=== PATIENT | male | born 1930 | race Caucasian/White ===

== ENCOUNTER → 2016-05-20 | Outpatient (CLI) | payer MEDICARE ==
[~2016-05-20] MED LIST: ADVI200C5 PO; ALUM5LIQ PO; AMOX500T PO; ASPI1TAB69 PO; ASPI81TA82 PO; COLA50CA PO; COQ-150C PO; LISI-360 PO; LISI10TA3 PO; MUCI600T PO; NIAC250T3 PO; RANI150T PO; ROSU20 PO; TAMS5CAP PO; TOPR50TA PO
[2016-05-20 13:14] LABS: HEMATOCRIT 43.7 % (39.0-51.0); MEAN CELL VOLUME 92.3 FL (80.0-100.0); MEAN CORPUSCULAR HEMOGLOBIN 31.5 PG (27.0-34.0); MEAN CORPUSCULAR HGB CONC 34.1 % (32.0-36.0); PLATELET COUNT 197 TH/MM3 (150-450); RED BLOOD COUNT 4.73 MIL/MM3 (4.50-5.90); REVIEW FLAG FINAL; WHITE BLOOD COUNT 7.6 TH/MM3 (4.0-11.0)
--- NOTE | 2016-05-20 16:08 | EKG ---
Date Performed: 05/20/2016 Time Performed: 12:03:28 PTAGE: 86 years EKG: Sinus rhythm NORMAL ECG NO PREVIOUS TRACING DOCTOR: Jordan Grimaldo Interpretating Date/Time 05/20/2016 16:06:15
== END ==
LOC: CPRE 11:35
PROVIDERS: ATTEND Specialist
DX: Z01.810 Encounter for preprocedural cardiovascular examination (principal); Z01.812 Encounter for preprocedural laboratory examination; J34.2 Deviated nasal septum; J32.3 Chronic sphenoidal sinusitis
CPT/HCPCS: 36415; 85027; 93005

== ENCOUNTER → 2016-05-26 | Day surgery (SDC) | payer MEDICARE ==
--- NOTE | 2016-05-25 18:15 | MH ---
cc: NATHAN ALBARRAN DATE OF ADMISSION 05/26/2016 REASON FOR ADMISSION An 86-year-old gentleman with nasal obstruction and chronic sinusitis for nasal sinus surgery. PAST MEDICAL HISTORY Unremarkable. PAST SURGICAL HISTORY Unremarkable. REVIEW OF SYSTEMS Unremarkable. FAMILY HISTORY Unremarkable. SOCIAL HISTORY Unremarkable. PHYSICAL EXAMINATION GENERAL: A well-appearing patient in no acute distress is noted. HEENT: Exam reveals septal deviation, turbinate hypertrophy, mucopurulent secretions. LUNGS: Clear. HEART: Regular rate and rhythm. ABDOMEN: Soft and nontender. EXTREMITIES: Without clubbing, cyanosis or edema. NEUROLOGIC: Alert, oriented, nonfocal neurologic exam. IMPRESSION A patient with chronic sinusitis and nasal obstruction for nasal sinus surgery. The patient instructed in the method of surgery including anesthetic complications such as cardiac difficulty, pulmonary difficulty, stroke, or even . Surgical complications bleeding, infection, risk of transfusion, injury to orbit including blindness and diplopia, injury to brain including CSF leak, meningitis, brain abscess or even . The patient appeared to agree accept and understand above-mentioned risks and benefits. In addition no guarantees or warranties regarding outcome were given. We will therefore proceed with surgery. MD JATINDER Burleson/CHANA /5:26 PM /6:03 PM
[~2016-05-26] VITALS: Ht 167.6 cm; Wt 83.9 kg
[~2016-05-26] MED LIST changes: +ACETAMINOPHEN 1000 MG/100 ML VIAL IV ONE; +ACETAMINOPHEN/HYDROcodone 325 MG/7.5 MG TAB PO PRN; -ALUM5LIQ PO; -AMOX500T PO; -ASPI81TA82 PO; -COLA50CA PO; +DO NOT ADM ANY ANTICOAGULANT DRUGS XX PRN; +EPINEPHrine HCL (1:1000) 30 MG/30 ML VIAL ONE; +FAMOTIDINE 20 MG/2 ML VIAL ONE; +LIDOCAINE 1%/EPINEPHrine 1:100,000 SOLN 30 ML VIAL ONE; -LISI-360 PO; +MIDAZOLAM HCL 2 MG/2 ML VIAL ONE; +MORPHINE SULFATE 4 MG/ML INJ IV PUSH PRN; -MUCI600T PO; +ONDANSETRON HCL 4 MG/2 ML VIAL IV PUSH ONE; +ONDANSETRON HCL 4 MG/2 ML VIAL IV PUSH PRN; +PHENYLEPH/NS 1000 MCG/10 ML SYR IV ONE; +PROPOFOL 200 MG/20 ML AMP IV ONE; +ePHEDrine/NS 25 MG/5 ML SYR IV ONE; +fentaNYL CITRATE 250 MCG/5 ML AMP ONE
[2016-05-26 07:30] VITALS: BP 131/72; PULSE 75; RESP 18; TEMP 97.9; O2SAT 99
[2016-05-26 12:16] VITALS: BP 115/68; PULSE 63; RESP 20; TEMP 97.4; O2SAT 99
--- NOTE | 2016-05-29 06:34 | MP ---
cc: NATHAN ALBARRAN DATE OF SURGERY: 05/26/2016 PREOPERATIVE DIAGNOSIS Chronic nasal obstruction and chronic sinusitis. POSTOPERATIVE DIAGNOSIS Chronic nasal obstruction and chronic sinusitis. PROCEDURE 1. Open septal reconstruction. 2. Bilateral endoscopic frontal sinusotomy. 3. Bilateral endoscopic maxillary antrostomy with removal of tissue. 4. Bilateral endoscopic anterior posterior ethmoidectomy. 5. Bilateral inferior turbinate submucous resection. ANESTHESIA General. ESTIMATED BLOOD LOSS Minimal. COMPLICATIONS No complications. OPERATING SURGEON Dr. Albarran OPERATION Prepped, draped usual fashion. 1% Xylocaine, 1:100,000 epinephrine injected into nasal septum, inferior turbinate, middle meatus bilaterally. 1:1000 adrenaline-soaked pledgets were placed and then removed. Once this was achieved, under endoscopic visualization the microdebrider was used to remove the uncinate process on the left side, the natural antrostomy identified and enlarged and a significant amount of mucopurulent suctioned from it along with polypoid tissue. Anterior posterior ethmoidectomy performed with microdebrider as well as frontal sinus dissection. Significant purulence returned after opening the frontal sinus and the ethmoid. A Telfa splint was placed under endoscopic visualization in the left middle meatus. Similar fashion right side significant anterior posterior ethmoidectomy performed with microdebrider, natural antrostomy enlarged and polypoid tissue removed from it endoscopically with the microdebrider and an uncinectomy performed up to the level of the frontal sinus recess where dissection performed with the microdebrider and removal of tissue all under endoscopic visualization. Telfa splint placed. Once this was achieved a mucoperichondrial incision made on the right side of the nose. Mucoperichondrial flap elevated. Significant amount of bone and cartilage removed from this incision to improve the nasal airway and reduce the nasal fracture. Once this was achieved the mucoperichondrial flap re-approximated using the Coblator probe multiple insertions in the left and the right inferior turbinates. Significant submucosal resection of the turbinate was performed. No active bleeding was noted. Patient tolerated procedure well. MD JATINDER Burleson/KANDICE /11:59 AM /6:23 AM
== END | disposition home or self-care (01) ==
LOC: HSDC 06:49
PROVIDERS: ATTEND Specialist
DX: J32.9 Chronic sinusitis, unspecified (principal); J34.3 Hypertrophy of nasal turbinates; J34.2 Deviated nasal septum; B96.89 Other specified bacterial agents as the cause of diseases classified elsewhere
CPT/HCPCS: 00160; 30140; 30520; 31254; 31267; 31276; 86403; 87015; 87070; 87102; 87116; 87185; 87205; 87206; J0131; J0171; J2250; J2370; J2405; J3010

== ENCOUNTER 2016-05-28 13:25 | Emergency (ER) | payer MEDICARE ==
[~2016-05-28] VITALS: Ht 167.6 cm; Wt 84.1 kg
[~2016-05-28 13:25] MED LIST changes: -ACETAMINOPHEN 1000 MG/100 ML VIAL IV ONE; -ACETAMINOPHEN/HYDROcodone 325 MG/7.5 MG TAB PO PRN; -DO NOT ADM ANY ANTICOAGULANT DRUGS XX PRN; -EPINEPHrine HCL (1:1000) 30 MG/30 ML VIAL ONE; -FAMOTIDINE 20 MG/2 ML VIAL ONE; -LIDOCAINE 1%/EPINEPHrine 1:100,000 SOLN 30 ML VIAL ONE; -MIDAZOLAM HCL 2 MG/2 ML VIAL ONE; -MORPHINE SULFATE 4 MG/ML INJ IV PUSH PRN; -ONDANSETRON HCL 4 MG/2 ML VIAL IV PUSH ONE; -ONDANSETRON HCL 4 MG/2 ML VIAL IV PUSH PRN; -PHENYLEPH/NS 1000 MCG/10 ML SYR IV ONE; -PROPOFOL 200 MG/20 ML AMP IV ONE; -TAMS5CAP PO; -ePHEDrine/NS 25 MG/5 ML SYR IV ONE; -fentaNYL CITRATE 250 MCG/5 ML AMP ONE
[2016-05-28 13:38] VITALS: BP 126/74; PULSE 85; RESP 16; TEMP 97.4; O2SAT 97
[2016-05-28] MEDS ORDERED: SODIUM CHLOR 0.9% 1000 ML INJ 1,000 ML IV SCH (13:59)
[2016-05-28] MEDS ORDERED: SODIUM CHLORIDE 0.9% FLUSH 5 ML FLUSH IVF PRN (14:00)
--- NOTE | 2016-05-28 14:12 | PD ---
HPI Chief Complaint: Complaint Time Seen by Provider: 13:59 Travel History International Travel<30 days: No Contact w/Intl Traveler<30days: No Traveled to known affect area: No History of Present Illness HPI Patient presents with complaints of urinary retention and constipation. Reports sinus surgery on with anesthesia, denies Thomas placement. Reports one very small bowel movement since. Reports urinating at 2:00 this morning. Denies any previous prostate issues. Denies any previous abdominal surgeries. He is not taking pain medication. Denies nausea vomiting diarrhea or fever. Compliant with oral antibiotics. PFSH Past Medical History Hx Anticoagulant Therapy: Yes (asa 81mg) Cancer: No Cardiovascular Problems: Yes (htn on meds 4 vessel bypass 2004) High Cholesterol: Yes Coronary Artery Disease: Yes Diabetes: No Diminished Hearing: Yes Endocrine: No Gastrointestinal Disorders: No Genitourinary: No Hepatitis: No Hiatal Hernia: No Hypertension: Yes Immune Disorder: No Medical other: No Musculoskeletal: Yes (arthritis in hands ) Neurologic: No Psychiatric: No Reproductive: No Respiratory: No Thyroid Disease: No Tetanus Vaccination: Unknown Past Surgical History AICD: No Body Medical Devices: sternal wires Cardiac Surgery: Yes (bypass 2004 4 vessels) Coronary Artery Bypass Graft: Yes (2003) Eye Surgery: Yes (catract bilateral) Joint Replacement: No Pacemaker: No Social History Alcohol Use: No Tobacco Use: No Substance Use: No Allergies-Medications (Allergen,Severity, Reaction): Coded Allergies: No Known Allergies (Unverified , 05/28/16) Reported Meds & Prescriptions Reported Meds & Active Scripts Active Flomax (Tamsulosin HCl) 0.4 Mg Cap 0.4 Mg PO HS Reported Coq-10 (Coenzyme Q10 (Ubidecarenone)) 150 Mg Cap 300 Mg PO DAILY Niacin 250 Mg Tab 400 Mg PO DAILY Lisinopril 10 Mg Tab 10 Mg PO DAILY Toprol XL (Metoprolol Succinate) 50 Mg Tab 50 Mg PO DAILY Ranitidine (Ranitidine HCl) 150 Mg Tab 150 Mg PO DAILY Crestor (Rosuvastatin Calcium) 20 Mg Tab 20 Mg PO DAILY Review of Systems General / Constitutional: No: Fever Eyes: No: Visual changes HENT: No: Headaches Cardiovascular: No: Chest Pain or Discomfort Respiratory: No: Shortness of Breath Gastrointestinal: Positive: Constipation, No: Abdominal Pain Genitourinary: Positive: Decreased Urinary Output, No: Dysuria Musculoskeletal: No: Pain Skin: No Rash Neurologic: No: Weakness Psychiatric: No: Depression Endocrine: No: Polydipsia Hematologic/Lymphatic: No: Easy Bruising Physical Exam Narrative GENERAL: Well-nourished, well-developed patient. SKIN: Warm and dry. HEAD: Normocephalic. EYES: No scleral icterus. No injection or drainage. NECK: Supple, trachea midline. No JVD or lymphadenopathy. CARDIOVASCULAR: Regular rate and rhythm without murmurs, gallops, or rubs. RESPIRATORY: Breath sounds equal bilaterally. No accessory muscle use. GASTROINTESTINAL: Abdomen soft, diffusely tender in the pubic region and left lower quadrant, nondistended. MUSCULOSKELETAL: No cyanosis, or edema. BACK: Nontender without obvious deformity. No CVA tenderness. Data Data Last Documented VS Vital Signs Date Time Temp Pulse Resp B/P Pulse Ox O2 Delivery O2 Flow Rate FiO2 05/28/16 14:40 77 16 122/66 99 Room Air 05/28/16 13:38 97.4 Orders Urinalysis - C+S If Indicated (05/28/16 13:59) Iv Access Insert/Monitor (05/28/16 13:59) Ecg Monitoring (05/28/16 13:59) Oximetry (05/28/16 13:59) NPO (05/28/16 13:59) Sodium Chlor 0.9% 1000 Ml Inj (Ns 1000 M (05/28/16 13:59) Sodium Chloride 0.9% Flush (Ns Flush) (05/28/16 14:00) Abdomen, Upright Only (05/28/16 13:59) Urinary Catheter Management COLLIN.Q8H (05/28/16 13:59) Labs Laboratory Tests Test 05/28/16 14:25 Urine Collection Type CATH Urine Color YELLOW Urine Turbidity SLIGHT Urine pH 6.0 Urine Specific [place] 1.012 Urine Protein NEG mg/dL Urine Glucose (UA) NEG mg/dL Urine Ketones NEG mg/dL Urine Occult Blood NEG Urine Nitrite NEG Urine Bilirubin NEG Urine Leukocyte Esterase NEG Urine RBC 0-3 /hpf Urine Transitional Epithelial 0-5 /hpf Cells Urine Amorphous Sediment FEW Microscopic Urinalysis Comment CATH-CULT NOT IND Urine Collection Time 1425 MDM Medical Decision Making Medical Screen Exam Complete: Yes Emergency Medical Condition: Yes Differential Diagnosis Urinary retention, BPH, constipation, small bowel obstruction, ileus Narrative Course Assessment and plan discussed with patient and at bedside. Thomas catheter placed with over 1300 cc of urinary output. Patient much improved. Last 72 hours Impressions Abdomen X-Ray 05/28/16 2729 Signed Impressions: Service Date/Time: Monday, May 28, 2016 14:29 - CONCLUSION: Unremarkable upper abdomen. Henrique Rockwell MD Diagnosis Primary Impression: Urinary retention Additional Impression: Constipation Qualified Code: K59.03 - Drug-induced constipation Patient Instructions: General Instructions Additional Instructions: Constipation: Encouraged Colace 100 mg by mouth twice a day, encouraged increase fluids and fiber supplement, encouraged daily prune juice, discussed Dulcolax and magnesium citrate as well as fleets enema Urinary retention: Leave Thomas in place with leg bag placed, follow-up with PCP I feel this is likely secondary to anesthesia, PCP we'll assess need for urology , start Flomax Med/Other Pt SpecificInfo: Prescription(s) given Scripts Tamsulosin (Flomax)0.4 Mg Cap0.4 Mg PO HS #30 CAP Ref 0 Prov:Tio Pearson MD 05/28/16 Disposition: 01 DISCHARGE HOME Condition: Good Tio Pearson MD May 28, 2016 14:12
[2016-05-28 14:15] VITALS: RESP 16; O2SAT 99
[2016-05-28 14:40] VITALS: BP 122/66; PULSE 77; RESP 16; O2SAT 99
--- NOTE | 2016-05-28 14:44 | RADHPO ---
EXAM DATE/TIME: 05/28/2016 14:29 [facility] COMPARISON: No previous studies available for comparison. INDICATIONS : Abdomen pain today MEDICAL HISTORY : None. SURGICAL HISTORY : None. ENCOUNTER: Initial ACUITY: 1 day PAIN SCORE: 7/10 LOCATION: Bilateral abdomen FINDINGS: A single erect view of the abdomen demonstrates the lower lungs to be clear. No evidence of free int raperitoneal gas. The visualized bowel loops are unremarkable. CONCLUSION: Unremarkable upper abdomen. Henrique Rockwell MD on May 28, 2016 at 14:42 Board Certified Radiologist. This report was verified electronically.
[2016-05-28 14:50] LABS: BLOOD, URINE NEG (NEG); GLUCOSE,URINE NEG (NEG); KETONE, URINE NEG (NEG); METHOD OF COLLECTION CATH; NITRITE,URINE NEG (NEG)
[2016-05-28 14:51] LABS: URINE COLOR YELLOW (YELLW/STRAW)
[2016-05-28 14:54] LABS: COMMENT (UR) CATH-CULT NOT IND; COMMENT2 (UR) MUCOUS PRESENT; CULTURE IF INDICATED CATH CULTURE NOT IND; RBC, URINE 0-3 /hpf (0-3)
[2016-05-28 14:55] LABS: TRANSITIONAL EPI CELLS, URINE 0-5 /hpf
[2016-05-28] MEDS ORDERED: TAMS5CAP PO (15:28)
[2016-05-28 15:40] VITALS: BP 136/66; PULSE 78; RESP 16; O2SAT 98
== END 2016-05-28 16:00 | disposition home or self-care (01) ==
LOC: PHED 13:25
DX: R33.9 Retention of urine, unspecified (principal); K59.00 Constipation, unspecified; I10 Essential (primary) hypertension; E78.00 Pure hypercholesterolemia, unspecified; I25.10 Atherosclerotic heart disease of native coronary artery without angina pectoris; Z79.01 Long term (current) use of anticoagulants
CPT/HCPCS: 51702; 74000; 81001; 96360; 99283; J7030

== ENCOUNTER 2016-05-30 10:50 | Emergency (ER) | payer MEDICARE ==
[~2016-05-30] VITALS: Ht 167.6 cm; Wt 82.0 kg
[~2016-05-30 10:50] MED LIST changes: -ADVI200C5 PO; -ASPI1TAB69 PO; +TAMS5CAP PO
[2016-05-30 10:55] VITALS: BP 131/78; PULSE 77; RESP 18; TEMP 97.8; O2SAT 98
--- NOTE | 2016-05-30 11:43 | PD ---
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 Patient was seen and evaluated in the emergency department on Monday, at that time he had complaint of urinary retention and constipation. He had sinus surgery on 05/26/16 under anesthesia, it was felt that the retention was secondary to the anesthesia. Patient has had no previous problems with urinary retention/obstruction. He states his primary doctor will take the catheter out and he has no urologist. Denies any other complaints at this time, stating that he feels good. PFSH Past Medical History Hx Anticoagulant Therapy: No (ASA 81 mg daily ) Cancer: No Cardiovascular Problems: Yes (CABG) High Cholesterol: Yes Coronary Artery Disease: Yes Diabetes: No Diminished Hearing: Yes Endocrine: No Gastrointestinal Disorders: No Genitourinary: No Hepatitis: No Hiatal Hernia: No Hypertension: Yes Immune Disorder: No Musculoskeletal: Yes (arthritis in hands ) Neurologic: No Psychiatric: No Reproductive: No Respiratory: No Thyroid Disease: No Tetanus Vaccination: < 5 Years Influenza Vaccination: Yes Past Surgical History AICD: No Body Medical Devices: sternal wires Cardiac Surgery: Yes (bypass 2004 4 vessels) Coronary Artery Bypass Graft: Yes (2003) Eye Surgery: Yes (catract bilateral) Joint Replacement: No Pacemaker: No Other Surgery: Yes Social History Alcohol Use: No Tobacco Use: No Substance Use: No Allergies-Medications (Allergen,Severity, Reaction): Coded Allergies: No Known Allergies (Unverified , 05/30/16) Reported Meds & Prescriptions Reported Meds & Active Scripts Active Flomax (Tamsulosin HCl) 0.4 Mg Cap 0.4 Mg PO HS Reported Coq-10 (Coenzyme Q10 (Ubidecarenone)) 150 Mg Cap 300 Mg PO DAILY Niacin 250 Mg Tab 400 Mg PO DAILY Lisinopril 10 Mg Tab 10 Mg PO DAILY Toprol XL (Metoprolol Succinate) 50 Mg Tab 50 Mg PO DAILY Ranitidine (Ranitidine HCl) 150 Mg Tab 150 Mg PO DAILY Crestor (Rosuvastatin Calcium) 20 Mg Tab 20 Mg PO DAILY Review of Systems Except as stated in HPI: all other systems reviewed are Neg Physical Exam Narrative GENERAL: Well-nourished, well-developed patient. SKIN: Warm and dry. HEAD: Normocephalic. EYES: No scleral icterus. No injection or drainage. NECK: Supple, trachea midline. No JVD or lymphadenopathy. CARDIOVASCULAR: Regular rate and rhythm without murmurs, gallops, or rubs. RESPIRATORY: Breath sounds equal bilaterally. No accessory muscle use. GASTROINTESTINAL: Abdomen soft, non-tender, nondistended. MUSCULOSKELETAL: No cyanosis, or edema. BACK: Nontender without obvious deformity. No CVA tenderness. Data Data Last Documented VS Vital Signs Date Time Temp Pulse Resp B/P Pulse Ox O2 Delivery O2 Flow Rate FiO2 05/30/16 10:55 97.8 77 18 131/78 98 Orders Urinary Catheter - Remove (05/30/16 11:31) [facility] Medical Decision Making Medical Screen Exam Complete: Yes Emergency Medical Condition: Yes Interpretation(s) Vital Signs Date Time Temp Pulse Resp B/P Pulse Ox O2 Delivery O2 Flow Rate FiO2 05/30/16 10:55 97.8 77 18 131/78 98 Differential Diagnosis Urinary retention versus obstruction versus side effects of anesthesia versus urinary tract infection versus other Narrative Course He is a 6-year-old male who presented to emergency department to have his urinary catheter removed. Catheter was placed on 28 May after patient complaint of urinary retention likely secondary to anesthesia that he was under on May 26. Patient appears well, his vital signs are stable, urinary catheter was removed without difficulty. Patient was able to urinate without difficulty in the emergency department after Thomas catheter was removed. He was encouraged to follow-up with his primary doctor. He was encouraged to return to emergency department immediately for any new or worsening symptoms. Patient and verbalized understanding of these instructions. Patient is stable for discharge. Diagnosis Primary Impression: Encounter for removal of urinary catheter Referrals: Primary Care Physician Patient Instructions: General Instructions Additional Instructions: Follow-up with your primary doctor Return to emergency department immediately for any new or worsening symptoms or inability to urinate Continue home medications as previously prescribed Med/Other Pt SpecificInfo: No Change to Meds Disposition: 01 DISCHARGE HOME Condition: Stable Nel Galicia May 30, 2016 11:43
== END 2016-05-30 13:00 | disposition home or self-care (01) ==
LOC: PHEFT 10:50
DX: Z46.82 Encounter for fitting and adjustment of non-vascular catheter (principal); I10 Essential (primary) hypertension; E78.00 Pure hypercholesterolemia, unspecified; Z95.1 Presence of aortocoronary bypass graft
CPT/HCPCS: 99283

== ENCOUNTER → 2017-04-10 | Outpatient (CLI) | payer MEDICARE ==
[2017-04-10 09:31] LABS: HEMATOCRIT 42.1 % (39.0-51.0); MEAN CELL VOLUME 92.4 FL (80.0-100.0); MEAN CORPUSCULAR HEMOGLOBIN 32.7 PG (27.0-34.0); MEAN CORPUSCULAR HGB CONC 35.4 % (32.0-36.0); PLATELET COUNT 196 TH/MM3 (150-450); RED BLOOD COUNT 4.55 MIL/MM3 (4.50-5.90); RED CELL DISTRIBUTION WIDTH 12.5 % (11.6-17.2); REVIEW FLAG FINAL; WHITE BLOOD COUNT 6.9 TH/MM3 (4.0-11.0)
[2017-04-10 09:42] LABS: ANION GAP 6 MEQ/L (5-15); AST (GOT) 28 U/L (15-37); BICARBONATE 27.5 MEQ/L (21.0-32.0); BLOOD UREA NITROGEN 16 MG/DL (7-18); CHLORIDE 105 MEQ/L (98-107); GLOMERULAR FILTRATION RATE 62 ML/MIN (>89); POTASSIUM 4.1 MEQ/L (3.5-5.1); SODIUM (NA) 138 MEQ/L (136-145)
[2017-04-10 09:44] LABS: GLUCOSE,FASTING 108 MG/DL (74-99)
[2017-04-10 09:51] LABS: ALKALINE PHOSPHATASE 89 U/L (45-117); ALT (GPT) 30 U/L (12-78); HDL CHOLESTEROL 52.4 MG/DL (40.0-60.0); LDL CHOLESTEROL 54 MG/DL (0-99); LDL CHOLESTEROL DIRECT 66 MG/DL (0-99); TOTAL BILIRUBIN ADULT 0.6 MG/DL (0.2-1.0)
== END ==
LOC: PLAB 07:28
PROVIDERS: ATTEND Internal Medicine
DX: I10 Essential (primary) hypertension (principal)
CPT/HCPCS: 36415; 80053; 80061; 83721; 85027

== ENCOUNTER → 2017-08-24 | Outpatient (CLI) | payer MEDICARE ==
[~2017-08-24] MED LIST changes: +ASPI81TA23 PO; +BOSW5TAB PO; +DOCU50CA5 PO; +GABA300C5 PO; +IBUP1TAB5 PO; -NIAC250T3 PO; +NIAC500T67 PO; +[UNRECOGNIZED DRUG - CODE] PO
[2017-08-24 14:51] LABS: HEMATOCRIT 43.4 % (39.0-51.0); HEMOGLOBIN 15.3 GM/DL (13.0-17.0); MEAN CELL VOLUME 92.1 FL (80.0-100.0); MEAN CORPUSCULAR HEMOGLOBIN 32.5 PG (27.0-34.0); MEAN CORPUSCULAR HGB CONC 35.3 % (32.0-36.0); MEAN PLATELET VOLUME 7.3 FL (7.0-11.0); PLATELET COUNT 217 TH/MM3 (150-450); RED BLOOD COUNT 4.72 MIL/MM3 (4.50-5.90); RED CELL DISTRIBUTION WIDTH 13.3 % (11.6-17.2); WHITE BLOOD COUNT 8.1 TH/MM3 (4.0-11.0)
[2017-08-24 14:56] LABS: ALBUMIN 3.9 GM/DL (3.4-5.0); AST (GOT) 25 U/L (15-37); BICARBONATE 25.9 MEQ/L (21.0-32.0); BLOOD UREA NITROGEN 23 MG/DL (7-18); CALCIUM 9.1 MG/DL (8.5-10.1); CHLORIDE 102 MEQ/L (98-107); CHOLESTEROL 126 MG/DL (120-200); CREATININE 1.15 MG/DL (0.60-1.30); GLOMERULAR FILTRATION RATE 60 ML/MIN (>89); GLUCOSE,FASTING 84 MG/DL (74-99); SODIUM (NA) 136 MEQ/L (136-145)
[2017-08-24 14:59] LABS: ALKALINE PHOSPHATASE 69 U/L (45-117); ALT (GPT) 33 U/L (12-78); HDL CHOLESTEROL 52.5 MG/DL (40.0-60.0); LDL CHOLESTEROL 60 MG/DL (0-99); LDL CHOLESTEROL DIRECT 68 MG/DL (0-99); TOTAL BILIRUBIN ADULT 0.7 MG/DL (0.2-1.0); TRIGLYCERIDES 68 MG/DL (42-150)
== END ==
LOC: PLAB 08:42
PROVIDERS: ATTEND Internal Medicine
DX: E78.5 Hyperlipidemia, unspecified (principal)
CPT/HCPCS: 36415; 80053; 80061; 83721; 85027